=== PATIENT | female | born 1955 | race Caucasian/White ===

== ENCOUNTER 2019-08-09 06:35 | Emergency (ER) | payer OTHER ==
[~2019-08-09] VITALS: Ht 160 cm; Wt 61.0 kg
[2019-08-09] MEDS ORDERED: OXYCODONE HCL/ACETAMINOPHEN 5/325MG TABLET PO ONE (07:15)
[2019-08-09] MEDS ORDERED: IBUPROFEN 600MG TABLET PO ONE (08:15)
[2019-08-09 08:35] VITALS: BP 149/62
== END 2019-08-09 09:00 | disposition home or self-care (01) ==
LOC: ER 06:35
DX: M25.532 Pain in left wrist (principal); V03.10XA Pedestrian on foot injured in collision with car, pick-up truck or van in traffic accident, initial encounter; Y93.89 Activity, other specified; Y92.520 Airport as the place of occurrence of the external cause
CPT/HCPCS: 29125; 73110; 99283